=== PATIENT | female | born 1985 | race Caucasian/White ===

== ENCOUNTER 2016-05-31 23:13 | Inpatient (IN) | payer OTHER ==
[~2016-05-31] VITALS: Ht 160 cm; Wt 116.5 kg
[~2016-05-31 23:13] MED LIST: PREN-46 PO
[2016-05-31 23:37] VITALS: BMI 45.5
[2016-05-31 23:38] VITALS: BP 127/70; PULSE 73; RESP 18
[2016-06-01 00:07] VITALS: Ht 160 cm; Wt 116.5 kg
[2016-06-01 00:12] VITALS: BP 127/70; PULSE 73; RESP 18
[2016-06-01] MEDS ORDERED: LACTATED RINGER'S 1,000 ML IV SCH (02:26)
[2016-06-01] MEDS ORDERED: METHYLERGONOVINE 0.2 MG INJ IM PRN ×2 (02:30→09:00)
[2016-06-01] MEDS ORDERED: LIDOCAINE 1% (MPF) 30 ML INJ INJ PRN (02:30)
[2016-06-01] MEDS ORDERED: BUTORPHANOL 2 MG INJ IV PRN (02:30)
[2016-06-01] MEDS ORDERED: IBUPROFEN 600 MG TAB PO PRN (02:30)
[2016-06-01] MEDS ORDERED: MISOPROSTOL 200 MCG TAB PR PRN ×2 (02:30→09:00)
[2016-06-01] MEDS ORDERED: CARBOPROST 250 MCG INJ IM PRN ×2 (02:30→09:00)
[2016-06-01] MEDS ORDERED: OXYTOCIN 30 UNITS/LR 500 ML IV SCH ×2 (02:30)
[2016-06-01] MEDS ORDERED: OXYTOCIN 30 UNITS/LR 500 ML IV PRN ×2 (02:30→09:00)
[2016-06-01] MEDS ORDERED: LACTATED RINGER'S 1,000 ML IV PRN (03:00)
--- NOTE | 2016-06-01 03:17 | RADRPT ---
PROCEDURE: US OB. CLINICAL INDICATION: Estimated weight, labor. Clinical estimated gestational age is 38 weeks 5 days with estimated date of delivery 06/10/2016. Estimated date of delivery based on previous study of 10/21/2015 equals 06/11/2016. TECHNIQUE: Multiple sonographic images of the pelvis were obtained. Transabdominal imaging only w as performed. The images were reviewed on a PACS workstation. COMPARISON: 10/21/2015 FINDINGS: There is a single live intrauterine gestation. heart motion was visualized at 140 beats per mi nute. There is a cephalic presentation. Measurements were made in order to determine age. The results are as follows: BPD = 9 cm, 36 weeks 3 days HC = 31.98 cm, 36 weeks 0 days AC = 35.17 cm, 39 weeks 1 day FL = 7.8 cm, 39 weeks 6 days. Estimated gestational age of approximately 37 weeks 6 days. The estimated date of delivery is 06/16/2016. The EFW = 3523 g, 7 pounds 12 ounces, 63.1 %. The placenta is anterior and grade 2. There is no evidence for an abruption. There is a normal amount of amniotic fluid with an JAVIER = 10.36 cm. IMPRESSION: 1. Single live intrauterine gestation of approximately 37 weeks 6 days based on present ultrasound measurements. 2. The estimated date of delivery is 06/16/2016. RPTAT: HJES .Sundeep Espinal MD, MD Date Time Electronically viewed and signed by .Sundeep Espinal MD, MD on 06/01/2016 03:17 .S/
--- NOTE | 2016-06-01 03:50 | HP ---
Date/Time of Note Date/Time of Note DATE: 06/01/16 TIME: 03:46 OB - History Hx of Present Chief Complaint: contractions Estimated Due Date: Jun 10, 2016 : 2 Para: 1 Spontaneous : 0 Therapeutic : 0 Care: Other ( records not available) Obstetrical Complications: None Medical Complications: None Past Family/Social History * Past Medical, Surgical, Family and Obstetric Histories reviewed from chart. GBS Status: Negative OB Admission Exam Vital Signs Vital Signs Vital Signs Date Time Temp Pulse Resp B/P Pulse Ox O2 Delivery O2 Flow Rate FiO2 06/01/16 00:12 99.7 73 18 127/70 Room Air Physical Exam HEENT: WNL Heart: Rhythm Normal Lungs: Clear Abdomen: WNL Extremities: Normal Cervical Dilatation: 3cm Effacement: 75% Station: -3 Membranes: Ruptured Amniotic Fluid: Clear Heart Rate: 130's Accelerations: Accelerations Present Decelerations: No Decelerations Varibility: Moderate OB Assessment/Plan Reason for admission: rupture of membranes Plan: Expectant Management PAUL DEAL MD Jun 01, 2016 03:50
[2016-06-01 04:29] LABS: BASOPHILS % 0.3 % (0.0-2.0); EOSINOPHILS # 0.1 10^3/ul (0.0-0.5); EOSINOPHILS % 0.8 % (0.0-7.0); HEMATOCRIT 34.2 % (37.0-47.0); HEMOGLOBIN 11.4 g/dl (12.0-16.0); LYMPHOCYTES # 2.7 10^3/ul (0.8-2.9); LYMPHOCYTES % 23.1 % (15.0-51.0); MEAN CORPUSCULAR HEMOGLOBIN 30.2 pg (29.0-33.0); MEAN CORPUSCULAR HGB CONC 33.4 g/dl (32.0-37.0); MEAN CORPUSCULAR VOLUME 90.5 fl (82.0-101.0); MEAN PLATELET VOLUME 9.5 fl (7.4-10.4); MONOCYTE # 0.6 10^3/ul (0.3-0.9); MONOCYTES % 5.5 % (0.0-11.0); NEUTROPHIL # 8.2 10^3/ul (1.6-7.5); NEUTROPHILS % 70.3 % (39.0-77.0); PLATELET COUNT 273 10^3/UL (140-440); RED BLOOD COUNT 3.78 10^6/ul (4.20-5.40); RED CELL DISTRIBUTION WIDTH 13.6 % (11.5-14.5); UNCORRECTED WBC 11.6 10^3/ul (4.8-10.8); WHITE BLOOD COUNT 11.6 10^3/ul (4.8-10.8)
[2016-06-01 04:49] LABS: INR 0.89; PARTIAL THROMBOPLASTIN TIME 25.8 Sec (25.0-35.0); PT RATIO 0.9
[2016-06-01] MEDS ORDERED: FENTAnyl 2MCG/ML-ROPIV 0.2% 100 ML ONE (04:49)
[2016-06-01 04:54] LABS: CONDITION 1
[2016-06-01] MEDS ORDERED: FENTAnyl 2MCG/ML-ROPIV 0.2% 100 ML BAG EPI SCH (05:30)
[2016-06-01] MEDS ORDERED: NALOXONE (0.4 MG/ML) INJ IV PRN (05:30)
--- NOTE | 2016-06-01 06:15 | LDN ---
Date/Time of Note Date/Time of Note DATE: 06/01/16 TIME: 06:13 Delivery Summary over intact perineum Placenta Delivered: Spontaneously Meconium: none Perineum intact?: No Perineal laceration: 1 Perineal laceration repair: First degree perineal laceration repaired with 3-0 Vicryl. Anesthesia type: Epidural Estimated blood loss: 200 Sponge & Needle done & correct: Yes All needle counts correct: Yes Any foreign bodies felt in the: No (Please specify) Problems: Delivery Information Sex Sex: male Apgars 1 Minute: 9 5 Minute: 10 Suctioning Nose & mouth suctioned at maldonado: Yes Delee suction performed: No Umbilical Cord Umbilical cord with: 3 Vessels Cord presentations: nuchal cord Nuchal cord present X: 1 Cord Blood was obtained: Yes PAUL DEAL MD Jun 01, 2016 06:15
--- NOTE | 2016-06-01 08:27 | DELSUM ---
Delivery Summary A-C Datetime Report Generated by CPN: 06/01/2016 08:26 DELIVERY PERSONNEL Chain Maker Machine: [facility], [facility] MATERNAL INFORMATION Delivery Anesthesia: Epidural Medications in Delivery: LR with Pitocin 30 units Estimated Blood Loss (ml): 200 Placenta Cultured: No Maternal Complications: None LABOR SUMMARY EDC: 06/10/2016 00:00 No. Babies in Womb: 1 Attempted: No Labor Anesthesia: Epidural LABOR INFORMATION Reason for Induction: Not Applicable Onset of Labor: 05/31/2016 10:10 Complete Dilatation: 06/01/2016 05:22 Oxytocin: N/A Group B Beta Strep: Negative Group B Beta Strep: Negative Antibiotics # of Doses: 0 Antibiotics Time of Last Dose: n/a Steroids Given: None Reason Steroids Not Administered: Not Applicable MEMBRANES Membranes Rupture Method: Spontaneous Rupture of Membranes: 06/01/2016 02:14 Length of Rupture (hr): 3.72 Amniotic Fluid Color: Clear Amniotic Fluid Amount: Moderate Amniotic Fluid Odor: None STAGES OF LABOR Stage 1 hr: 19 Stage 1 min: 12 Stage 2 hr: 0 Stage 2 min: 35 Stage 3 hr: 0 Stage 3 min: 4 Total Time in Labor hr: 19 Total Time in Labor min: 51 VAGINAL DELIVERY Episiotomy: None Laceration Extension: First Degree Laceration Type: Perineal Initial Vag Sponge Count: 20 Final Vag Sponge Count: 20 Initial Vag Sharps Count: 1 Final Vag Sharps Count: 2 Sponge Count Correct: Yes Sharps Count Correct: Yes BABY A INFORMATION Delivery Date/Time: 06/01/2016 05:57 Method of Delivery: Vaginal Born in Route : No : N/A Forceps: N/A Vacuum Extraction: N/A Shoulder Dystocia : N/A SHOULDER DYSTOCIA BABY A Delivery Date/Time: 06/01/2016 05:57 PRESENTATION/POSITION BABY A Presentation: Cephalic Presentation: Cephalic Presentation: Cephalic Cephalic Presentation: Vertex Vertex Position: Left Occipital Anterior Breech Presentation: N/A PLACENTA INFORMATION BABY A Placenta Delivery Time : 06/01/2016 06:01 Placenta Method of Delivery: Spontaneous Placenta Status: Delivered SCORES BABY A Heart Rate 1 min: >100 bpm Resp Effort 1 min: Good Cry Reflex Irritability 1 min: Cough/Sneeze/Pulls Away Muscle Tone 1 min: Active Motion Color 1 min: Body Lucien, Extremit Blue Resuscitation Effort 1 min: Tactile Stimulation SCORE 1 MIN: 9 Heart Rate 5 min: >100 bpm Resp Effort 5 min: Good Cry Reflex Irritability 5 min: Cough/Sneeze/Pulls Away Muscle Tone 5 min: Active Motion Color 5 min: Body Lucien, Extremit Blue Resuscitation Effort 5 min: Tactile Stimulation SCORE 5 MIN: 9 INFORMATION BABY A Gestational Age at Delivery: 38.5 Gestational Status: Early Term- 37- 38.6 Weeks Outcome : Liveborn Condition : Stable Infant Sex: Male IDENTIFICATION/MEDS BABY A ID Band Number: [id number] ID Band Location: Right Leg; Right Arm Sensor Applied: Yes Sensor Number: [id number] Sensor Location : Cord Clamp Vitamin K Given : Not Given Erythromycin Given: Not Given WEIGHT/LENGTH BABY A Birthweight (gm): 3365 Weight (lb): 7 Weight (oz): 7 Length (in): 20.25 Length (cm): 51.44 CORD INFORMATION BABY A No. Cord Vessels: 3 Nuchal Cord : N/A Cord Blood Taken: Yes Infant Suction: Mouth; Nose ASSESSMENT BABY A Infant Complications: None Physical Findings at Delivery: Within Normal Limits Infant Respirations: Appears Normal Candy Mixer/ALS Called : No Care By: Tiara JUAREZ Transferred To: Remains with Mother
[2016-06-01 08:40] VITALS: BP 113/94; PULSE 79; RESP 18
[2016-06-01] MEDS ORDERED: BENZOCAINE 20% 56 ML SPRAY TOP PRN (09:00)
[2016-06-01] MEDS ORDERED: DIBUCAINE 1% 30 GM OINT PR PRN (09:00)
[2016-06-01] MEDS ORDERED: ACETAMINOPHEN/CODEINE #3 TAB PO PRN (09:00)
[2016-06-01] MEDS ORDERED: WITCH HAZEL/GLYCERIN PAD PR PRN (09:00)
[2016-06-01] MEDS ORDERED: ACETAMINOPHEN 325 MG TAB PO PRN (09:00)
[2016-06-01] MEDS: SENNA/DOCUSATE NA (8.6MG/50MG) TAB PO SCH ×2 (10:21→23:52)
[2016-06-01] MEDS: LACTATED RINGER'S 1,000 ML IV* SCH (10:22)
[2016-06-01] MEDS: IBUPROFEN 600 MG TAB PO SCH ×3 (11:30→23:52)
[2016-06-01 16:00] VITALS: BP 121/55; PULSE 78; RESP 16
[2016-06-01 21:15] VITALS: BP 120/72; PULSE 91; RESP 18
[2016-06-02] MEDS: LACTATED RINGER'S 1,000 ML IV* SCH (00:47)
[2016-06-02 04:30] VITALS: BP 127/79; PULSE 72; RESP 18
[2016-06-02] MEDS: IBUPROFEN 600 MG TAB PO SCH ×4 (06:02→23:40)
[2016-06-02 08:00] VITALS: BP 123/64; PULSE 66; RESP 18
[2016-06-02 08:05] LABS: BASOPHILS % 0.2 % (0.0-2.0); EOSINOPHILS # 0.1 10^3/ul (0.0-0.5); EOSINOPHILS % 1.1 % (0.0-7.0); HEMOGLOBIN 10.8 g/dl (12.0-16.0); LYMPHOCYTES # 2.6 10^3/ul (0.8-2.9); LYMPHOCYTES % 24.7 % (15.0-51.0); MEAN CORPUSCULAR HEMOGLOBIN 31.2 pg (29.0-33.0); MEAN CORPUSCULAR HGB CONC 33.8 g/dl (32.0-37.0); MEAN CORPUSCULAR VOLUME 92.3 fl (82.0-101.0); MEAN PLATELET VOLUME 9.3 fl (7.4-10.4); MONOCYTE # 0.7 10^3/ul (0.3-0.9); MONOCYTES % 6.2 % (0.0-11.0); NEUTROPHIL # 7.1 10^3/ul (1.6-7.5); NEUTROPHILS % 67.8 % (39.0-77.0); PLATELET COUNT 239 10^3/UL (140-440); RED BLOOD COUNT 3.46 10^6/ul (4.20-5.40); UNCORRECTED WBC 10.5 10^3/ul (4.8-10.8); WHITE BLOOD COUNT 10.5 10^3/ul (4.8-10.8)
[2016-06-02 08:12] LABS: CONDITION 1
[2016-06-02] MEDS: SENNA/DOCUSATE NA (8.6MG/50MG) TAB PO SCH ×2 (12:21→20:56)
--- NOTE | 2016-06-02 13:21 | PN ---
Date/Time of Note Date/Time of Note DATE: 06/02/16 TIME: 13:20 OB Subjective Subjective Subjective day 1 Vital sign stable abdomen soft uterus firm lochia normal extremity normal Laboratory Tests Test 06/02/16 06:52 Basophils # 0.010^3/ul Basophils % 0.2% Eosinophils # 0.110^3/ul Eosinophils % 1.1% Hematocrit 32.0% Hemoglobin 10.8g/dl Lymphocytes # 2.610^3/ul Lymphocytes % 24.7% Mean Corpuscular Hemoglobin 31.2pg Mean Corpuscular Hemoglobin Concent 33.8g/dl Mean Corpuscular Volume 92.3fl Mean Platelet Volume 9.3fl Monocytes # 0.710^3/ul Monocytes % 6.2% Neutrophils # 7.110^3/ul Neutrophils % 67.8% Nucleated Red Blood Cells # 0.010^3/ul Nucleated Red Blood Cells % 0.0/100WBC Platelet Count 52918^3/UL Red Blood Count 3.4610^6/ul Red Cell Distribution Width 14.0% White Blood Count 10.510^3/ul Current Medications Medications (Trade) Dose Ordered Sig/Chavo Route PRN Reason Start Time Stop Time Status Last Admin Dose Admin Lactated Ringer's (Lr) 1,000 ml @ 125 mls/hr Q8H IV 06/01/16 02:26 06/01/16 08:45 DC 06/01/16 03:26 Butorphanol Tartrate (Stadol) 2 mg Q2H PRN IV PAIN 06/01/16 02:30 06/01/16 08:45 DC Lidocaine 30 ml 30 ml ONCE PRN INJ EPISIOTOMY/TEARING 06/01/16 02:30 06/01/16 08:45 DC Oxytocin/Lactated Ringer's 500 ml @ 125 mls/hr ONCE -MAY REPEAT X1 IV 06/01/16 02:30 06/01/16 08:45 DC 06/01/16 06:40 Oxytocin/Lactated Ringer's 500 ml @ 125 mls/hr ONCE IV 06/01/16 02:30 06/01/16 08:45 DC 06/01/16 06:41 Ibuprofen 600 mg 600 mg ONCE PRN PO Mild Pain (Pain Score 1-3) 06/01/16 02:30 Lactated Ringer's 1,000 ml @ 2,000 mls/hr Q30M PRN IV PRE-EPIDURAL BOLUS 06/01/16 03:00 Oxytocin/Lactated Ringer's 500 ml @ 0 mls/hr ONCE PRN IV For Hemorrhage Management 06/01/16 02:30 Methylergonovine Maleate (Methergine) 0.2 mg ONCE PRN IM VAGINAL BLEEDING 06/01/16 02:30 Carboprost Tromethamine (Hemabate) 250 mcg ONCE PRN IM VAGINAL BLEEDING 06/01/16 02:30 Misoprostol 1000 mcg 1,[address] VAGINAL BLEEDING 06/01/16 02:30 Fentanyl/ Ropivacaine 100 ml @ STK-MED ONCE .ROUTE 06/01/16 04:49 06/01/16 04:50 DC Naloxone HCl (Narcan) 0.2 mg Q2M PRN IV FOR RESP RATE 8 OR LESS 06/01/16 05:30 06/01/16 08:45 DC Fentanyl/ Ropivacaine 100 ml 100 ml EPIDURAL (PCEA) EPI 06/01/16 05:30 06/01/16 08:45 DC Lactated Ringer's (Lr) 1,000 ml @ 125 mls/hr Q8H IV* 06/01/16 08:42 06/02/16 00:48 DC 06/01/16 10:22 Ibuprofen (Motrin) 600 mg Q6 PO 06/01/16 12:00 06/02/16 12:21 Acetaminophen (Tylenol Tab) 650 mg Q4H PRN PO PAIN LEVEL 1-5 06/01/16 09:00 Acetaminophen/ Codeine Phosphate (Tylenol No.3) 1 tab Q4H PRN PO PAIN LEVEL 1-5 06/01/16 09:00 Senna/Docusate Sodium (Senokot-S) 1 tab BID PO 06/01/16 09:00 06/02/16 12:21 Witch Michelle/ Glycerin (Tucks Pads) [address] PRN [address] HEMORRHOID/EPISIOTMY PAIN 06/01/16 09:00 06/01/16 10:22 Benzocaine (Dermoplast [place]) 1 spray BEDSIDE MEDICATION PRN TOP HEMORRHOID/EPISIOTMY PAIN 06/01/16 09:00 06/01/16 10:21 Dibucaine (Nupercainal) 1 applic BEDSIDE MEDICATION PRN CT HEMORRHOID/EPISIOTMY PAIN 06/01/16 09:00 Diphtheria/ Tetanus/Acell Pertussis 0.5 ml 0.5 ml ONCE ONCE IM* 06/03/16 09:00 06/03/16 09:01 Oxytocin/Lactated Ringer's 500 ml @ 0 mls/hr ONCE PRN IV For Hemorrhage Management 06/01/16 09:00 Methylergonovine Maleate (Methergine) 0.2 mg ONCE PRN IM VAGINAL BLEEDING 06/01/16 09:00 UNV Carboprost Tromethamine (Hemabate) 250 mcg ONCE PRN IM VAGINAL BLEEDING 06/01/16 09:00 UNV Misoprostol (Cytotec) 1,[address] VAGINAL BLEEDING 06/01/16 09:00 UNV MEGHA LAWSON MD Jun 02, 2016 13:21
[2016-06-02 16:00] VITALS: BP 114/57; PULSE 70; RESP 18
[2016-06-02 19:43] VITALS: BP 106/55; PULSE 68; RESP 18
[2016-06-03 03:35] VITALS: BP 121/60; PULSE 67; RESP 20
[2016-06-03] MEDS: IBUPROFEN 600 MG TAB PO SCH ×2 (05:39→12:26)
[2016-06-03 08:00] VITALS: BP 122/68; PULSE 68; RESP 18
[2016-06-03] MEDS ORDERED: DIPHTH/TET/ACEL PERTUSS (ADULT) 0.5 ML VIAL IM* ONE (09:00)
[2016-06-03] MEDS: SENNA/DOCUSATE NA (8.6MG/50MG) TAB PO SCH (09:16)
--- NOTE | 2016-06-03 13:07 | PD.PPDC ---
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
--- NOTE | 2016-06-03 13:12 | DS ---
Date/Time of Note Date/Time of Note DATE: 06/03/16 TIME: 13:09 Obstetrical Discharge Record Final Diagnosis Final Diagnosis: Term delivered Vaginal Delivery Obstetrical Delivery: Spontaneous Condition on Discharge Physical Assessment Last Vitals: Vital sign stable abdomen soft uterus firm lochia normal extremity discharged home with follow-up instructions advised to make appointment with the clinic to be seen in 2 weeks Current Medications Medications (Trade) Dose Ordered Sig/Chavo Route PRN Reason Start Time Stop Time Status Last Admin Dose Admin Lactated Ringer's (Lr) 1,000 ml @ 125 mls/hr Q8H IV 06/01/16 02:26 06/01/16 08:45 DC 06/01/16 03:26 Butorphanol Tartrate (Stadol) 2 mg Q2H PRN IV PAIN 06/01/16 02:30 06/01/16 08:45 DC Lidocaine 30 ml 30 ml ONCE PRN INJ EPISIOTOMY/TEARING 06/01/16 02:30 06/01/16 08:45 DC Oxytocin/Lactated Ringer's 500 ml @ 125 mls/hr ONCE -MAY REPEAT X1 IV 06/01/16 02:30 06/01/16 08:45 DC 06/01/16 06:40 Oxytocin/Lactated Ringer's 500 ml @ 125 mls/hr ONCE IV 06/01/16 02:30 06/01/16 08:45 DC 06/01/16 06:41 Ibuprofen 600 mg 600 mg ONCE PRN PO Mild Pain (Pain Score 1-3) 06/01/16 02:30 Lactated Ringer's 1,000 ml @ 2,000 mls/hr Q30M PRN IV PRE-EPIDURAL BOLUS 06/01/16 03:00 Oxytocin/Lactated Ringer's 500 ml @ 0 mls/hr ONCE PRN IV For Hemorrhage Management 06/01/16 02:30 Methylergonovine Maleate (Methergine) 0.2 mg ONCE PRN IM VAGINAL BLEEDING 06/01/16 02:30 Carboprost Tromethamine (Hemabate) 250 mcg ONCE PRN IM VAGINAL BLEEDING 06/01/16 02:30 Misoprostol 1000 mcg 1,000 mcg ONCE PRN DC VAGINAL BLEEDING 06/01/16 02:30 Fentanyl/ Ropivacaine 100 ml @ ud STK-MED ONCE .ROUTE 06/01/16 04:49 06/01/16 04:50 DC Naloxone HCl (Narcan) 0.2 mg Q2M PRN IV FOR RESP RATE 8 OR LESS 06/01/16 05:30 06/01/16 08:45 DC Fentanyl/ Ropivacaine 100 ml 100 ml EPIDURAL (PCEA) EPI 06/01/16 05:30 06/01/16 08:45 DC Lactated Ringer's (Lr) 1,000 ml @ 125 mls/hr Q8H IV* 06/01/16 08:42 06/02/16 00:48 DC 06/01/16 10:22 Ibuprofen (Motrin) 600 mg Q6 PO 06/01/16 12:00 06/03/16 12:26 Acetaminophen (Tylenol Tab) 650 mg Q4H PRN PO PAIN LEVEL 1-5 06/01/16 09:00 Acetaminophen/ Codeine Phosphate (Tylenol No.3) 1 tab Q4H PRN PO PAIN LEVEL 1-5 06/01/16 09:00 Senna/Docusate Sodium (Senokot-S) 1 tab BID PO 06/01/16 09:00 06/03/16 09:16 Witch Michelle/ Glycerin (Tucks Pads) 1 pad BEDSIDE MEDICATION PRN DC HEMORRHOID/EPISIOTMY PAIN 06/01/16 09:00 06/01/16 10:22 Benzocaine (Dermoplast [place]) 1 spray BEDSIDE MEDICATION PRN TOP HEMORRHOID/EPISIOTMY PAIN 06/01/16 09:00 06/01/16 10:21 Dibucaine (Nupercainal) 1 applic BEDSIDE MEDICATION PRN DC HEMORRHOID/EPISIOTMY PAIN 06/01/16 09:00 Diphtheria/ Tetanus/Acell Pertussis 0.5 ml 0.5 ml ONCE ONCE IM* 06/03/16 09:00 06/03/16 09:01 DC 06/03/16 12:27 Oxytocin/Lactated Ringer's 500 ml @ 0 mls/hr ONCE PRN IV For Hemorrhage Management 06/01/16 09:00 Methylergonovine Maleate (Methergine) 0.2 mg ONCE PRN IM VAGINAL BLEEDING 06/01/16 09:00 UNV Carboprost Tromethamine (Hemabate) 250 mcg ONCE PRN IM VAGINAL BLEEDING 06/01/16 09:00 UNV Misoprostol (Cytotec) 1,000 mcg ONCE PRN DC VAGINAL BLEEDING 06/01/16 09:00 UNV Voiding: Yes Bowel Movement: Yes Breast: Soft, non-tender, Filling Fundus: Firm Calf Tenderness: No Patient Condition: Good MEGHA LAWSON MD Jun 03, 2016 13:11
== END 2016-06-03 17:26 | disposition home or self-care (01) | DRG 775 ==
LOC: OBT 23:13 → L-D 23:14 → OBT 06-01 02:30 → L-D 06-01 05:30 → PP1 06-01 08:33
PROVIDERS: ADMIT Obstetrics & Gynecology; ATTEND Obstetrics & Gynecology
PROC: 10E0XZZ Delivery of Products of Conception, External Approach (ICD-10-PCS; principal; 2016-06-01)
PROC: 0HQ9XZZ Repair Perineum Skin, External Approach (ICD-10-PCS; 2016-06-01)
PROC: 3E0234Z Introduction of Serum, Toxoid and Vaccine into Muscle, Percutaneous Approach (ICD-10-PCS; 2016-06-03)
DX: O99.214 Obesity complicating childbirth (principal); Z68.42 Body mass index [BMI] 45.0-49.9, adult; O69.1XX0 Labor and delivery complicated by cord around neck, with compression, not applicable or unspecified; O70.0 First degree perineal laceration during delivery; E66.01 Morbid (severe) obesity due to excess calories; Z3A.38 38 weeks gestation of pregnancy; Z37.0 Single live birth; Z23 Encounter for immunization
CPT/HCPCS: 36415; 62319; 76815; 85025; 85610; 85730; 86592; 86900; 86901; 87340; 90715; G0463; J2590; J3010; J7120